=== PATIENT | female | born 1995 | race Caucasian/White ===

== ENCOUNTER 2018-09-22 21:31 | Emergency (ER) | payer OTHER ==
--- NOTE | 2018-09-22 21:33 | ER Report ---
History and Physical Time Seen By MD: 21:33 HPI/ROS CHIEF COMPLAINT: Fall downstairs HISTORY OF PRESENT ILLNESS: 22-year-old female who fell down stairs. She fell backwards landing on her tailbone also hitting her legs and her head. She thinks she may have lost consciousness for a few seconds. She denies neck pain. She has some deep scrapes on her legs. Her last tetanus shot was a few months ago. REVIEW OF SYSTEMS: Respiratory: No cough, no dyspnea. Cardiovascular: No chest pain, no palpitations. Gastrointestinal: No vomiting, no abdominal pain. Musculoskeletal: No back pain. Allergies: Coded Allergies: No Known Drug Allergies (Unverified , 09/22/18) Home Meds No Active Prescriptions or Reported Meds Reviewed Nurses Notes: Yes Old Medical Records Reviewed: Yes Constitutional Vital Sign - Last 24 Hours 09/22/18 09/22/18 09/22/18 09/22/18 21:34 21:46 22:16 22:30 Temp 97.8 Pulse 75 54 61 Resp 16 B/P (MAP) 123/76 113/73 (86) Pulse Ox 94 92 93 O2 Delivery Room Air 09/22/18 09/22/18 22:31 22:46 Pulse 56 54 Pulse Ox 95 93 Physical Exam General Appearance: The patient is alert, has no immediate need for airway protection and no current signs of toxicity. Palpation of the head and neck reveals no tenderness or trauma. HEENT: Pupils equal and round no injection. TMs normal, oropharynx without dental trauma Respiratory: Chest is non tender, lungs are clear to auscultation. No chest wall tenderness Cardiac: regular rate and rhythm Gastrointestinal: Abdomen is soft and non tender, no masses, bowel sounds normal. Musculoskeletal: Neck: Neck is supple and non tender. Extremities have full range of motion and are non tender. There is a large bruise over the medial aspect. The right knee, but she demonstrates full range of motion of the right knee. There are abrasions on her lower leg Skin: No rashes or lesions. DIFFERENTIAL DIAGNOSIS: After history and physical exam differential diagnosis was considered for head injury including but not limited to concussion, skull fracture, intraparenchymal contusion, subarachnoid, subdural and epidural hematoma. Coccyx fracture, coccyx contusion, coccyx brain, pelvic fracture Medical Decision Making EKG/Imaging Imaging Results: CT scan of the head without contrast was obtained. The results of the study are no acute traumatic findings. The study was read by the radiologist. I viewed the images myself on the PACS system. X-ray: Single view pelvis, coccyx three-view was obtained. I viewed the images myself on the PACS system. My interpretation of the images is: No obvious fracture, dislocation or malalignment noted. The radiologist interpretation had no clinically significant variation from this interpretation. ED Course/Re-evaluation ED Course She was admitted to an examination room. H&P was done. The differential diagnosis was considered. On clinical examination is a nonfocal neurologic examination. He has significant pain in her coccyx. Diagnostic x-rays are negative. A diagnostic head CT is unremarkable. Patient's treated with Zofran and hydrocodone by mouth. She reports improvement of her pain. She'll be discharged home with Zofran and hydrocodone take home packs. She is advised ibuprofen 6 and a grams 3 times daily. Patient advised to apply ice packs to the affected area for 2 days. Patient advised to follow-up with primary care if unimproved in 3-5 days. Decision to Disposition Date: Sep 22, 2018 Decision to Disposition Time: 22:40 Depart Departure Latest Vital Signs Vital Signs Date Time Temp Pulse Resp B/P (MAP) Pulse Ox O2 Delivery O2 Flow Rate FiO2 09/22/18 22:46 54 93 09/22/18 22:30 113/73 (86) 09/22/18 21:34 97.8 16 Room Air Impression: Primary Impression: Fall down stairs Additional Impressions: Head injury Multiple contusions Condition: Improved Disposition: HOME OR SELF-CARE Referrals: KEELY BACA MD New Scripts No Active Prescriptions or Reported Meds Patient Instructions: Contusion in Adults (ED), Head Injury (ED) Additional Instructions: Take ibuprofen 200 mg 3-4 tablets 3 times a day with food You may also take Tylenol 650 mg 3 times daily Follow-up with primary care if unimproved in 3-5 days. Problem Qualifiers Primary Impression: Fall down stairs Encounter type: initial encounter Qualified Codes: W10.8XXA - Fall (on) (from) other stairs and steps, initial encounter Additional Impressions: Head injury Encounter type: initial encounter Qualified Codes: S09.90XA - Unspecified injury of head, initial encounter CULLEN ISAACS DO Sep 22, 2018 21:33
[2018-09-22] MEDS ORDERED: ONDANSETRON 4 MG ODT TABDP SL ONE (21:45)
[2018-09-22] MEDS ORDERED: APAP/HYDROCODONE 325/5 TAB PO ONE (21:45)
[2018-09-22 22:30] VITALS: BP 113/73
--- NOTE | 2018-09-22 22:31 | RADIOLOGY IMAGING REPORT ---
FACILITY: [facility] PATIENT NAME: Elzbieta Rivera : 1995 MR: [id number] V: [id number] EXAM DATE: [id number] ORDERING PHYSICIAN: CULLEN ISAACS TECHNOLOGIST: Location: [facility] - [place] Patient: Elzbieta Rivera : 1995 Visit/Account:[id number] Date of Sevice: 09/22/2018 INDICATION: fall down stairs EXAM DATE: 09/22/2018 9:43 PM COMPARISON: None. FINDINGS: Single AP view of the pelvis, 3 views of the sacrum and coccyx. Mineralization is normal. No acute al ignment abnormality or fracture. Soft tissues are unremarkable. IMPRESSION: No acute osseous abnormality of the sacrum, coccyx and pelvis. Report Dictated By: Dinesh Zavala MD at 09/22/2018 10:24 PM Report E-Signed By: Dinesh Zavala MD at 09/22/2018 10:27 PM WSN:[id number]
--- NOTE | 2018-09-22 22:31 | RADIOLOGY IMAGING REPORT ---
[place] [facility] [place]IENT NAME: Elzbieta Rivera : 1995 MR: [id number] V: [id number] EXAM DATE: [id number] ORDERING PHYSICIAN: CULLEN ISAACS TECHNOLOGIST: Location: [facility] - [place] Patient: Elzbieta Rivera : 1995 Visit/Account:[id number] Date of Sevice: 09/22/2018 INDICATION: fall down stairs EXAM DATE: 09/22/2018 9:43 PM COMPARISON: None. FINDINGS: Single AP view of the pelvis, 3 views of the sacrum and coccyx. Mineralization is normal. No acute al ignment abnormality or fracture. Soft tissues are unremarkable. IMPRESSION: No acute osseous abnormality of the sacrum, coccyx and pelvis. Report Dictated By: Dinesh Zavala MD at 09/22/2018 10:24 PM Report E-Signed By: Dinesh Zavala MD at 09/22/2018 10:27 PM WSN:[id number]
--- NOTE | 2018-09-22 22:34 | RADIOLOGY IMAGING REPORT ---
FACILITY: [facility] [place] PATIENT NAME: Elzbieta Rivera : 1995 MR: [id number] V: [id number] EXAM DATE: [id number] ORDERING PHYSICIAN: CULLEN ISAACS TECHNOLOGIST: Location: [facility] Patient: Elzbieta Rivera : 1995 Visit/Account:[id number] Date of Sevice: 09/22/2018 CT Head without contrast Indication: Fall down stairs. Comparison: None available. Technique: Axial CT images were obtained through the brain from the skull base to the vertex without administration of IV contrast. One of the following dose optimization techniques was utilized in th e performance of this exam: Automated exposure control; adjustment of the mA and/or kV according to t he patient's size; or use of an iterative reconstruction technique. Specific details can be referen corey in the facility's radiology CT exam operational policy. Findings: No evidence of mass, mass effect, or midline shift. No acute intracranial hemorrhage or acute territorial infarction. No fracture. Globes and orbits are normal. The visualized paranasal sinuses and mastoid air spaces are clear. Exophytic lesion along the left posterior parietal scalp measuring 8 mm in diameter on image 70 serie s 3. IMPRESSION: No acute intracranial abnormality. Exophytic left posterior parietal scalp lesion, possibly a nevus. Correlate with exam. Report Dictated By: Dniesh Zavala MD at 09/22/2018 10:27 PM Report E-Signed By: Dinesh Zavala MD at 09/22/2018 10:30 PM WSN:[id number]
[2018-09-22] MEDS ORDERED: ONDANSETRON 4 MG ODT TH SL ONE (22:45)
[2018-09-22] MEDS ORDERED: ACET/HYDROC 5/325MG TH ER ONLY 2 TAB/BOTTLE PO ONE (22:45)
== END 2018-09-22 22:54 | disposition home or self-care (01) ==
LOC: ER 21:36
DX: S09.90XA Unspecified injury of head, initial encounter (principal); W10.8XXA Fall (on) (from) other stairs and steps, initial encounter; M53.3 Sacrococcygeal disorders, not elsewhere classified
CPT/HCPCS: 70450; 72170; 72220; 99284; S0119